=== PATIENT | female | born 1970 ===

== ENCOUNTER → 2024-08-21 | Outpatient (CLI) | payer MEDICAID ==
[~2024-08-21] MED LIST: IOHEXOL 350 MG/ML 100ML IJ ONE
[2024-08-21 09:36] VITALS: BP 171/106; PULSE 72; RESP 16; O2SAT 100
[2024-08-21 11:01] VITALS: BP 172/100; PULSE 68; RESP 16; O2SAT 100
--- NOTE | 2024-08-21 12:50 | DVH ---
Procedure: CT ANGIO RENAL BILATERAL HISTORY: RENAL STENOSIS Comparison Study: None Exam Date:08/21/2024 09:33 AM TECHNIQUE: CTA scanner volumetric data acquisition of abdomen and pelvis was obtained following intravenous admi nistration of intravenous contrast without any reported adverse effects. Axial images were reconstruc hayden and additional sagittal and coronal images were reformatted. Arterial phase imaging were performe d. Postprocessing was also performed on a separate workstation. 3 D images were performed on a dedicated workstation and reviewed for reporting. CONTRAST: Type of contrast: Omni 350 Contrast injected: 100 ml Radiation dose : CT Dose: CTDI volume is 20.72 mGy. Dose-length product is 819.2 mGy*cm FINDINGS: Vascular: Aortic measurements: aortic hiatus 20 mm, suprarenal abdominal aorta 17 mm and infrarenal aorta 13 m m. There is normal caliber of abdominal aorta without evidence of aortic aneurysm. There is a focal i ntimal flap in the infrarenal abdominal aorta. The celiac, superior mesenteric, bilateral renal, il iac and femoral arteries are patent without focal stenosis or aneurysm. Lung Bases: No acute or significant lung base finding. Normal heart size. No pleural or pericardial effusion. Liver: The liver is normal in size. No focal lesions. Normal hepatic vascular enhancement. Gallbladder and biliary Tree: Unremarkable Spleen: Unremarkable Pancreas: The pancreas is normal in appearance without focal lesions or abnormal enhancement. Adrenal Glands: Unremarkable Kidneys: Left renal cyst. No hydronephrosis. Bladder: Unremarkable Bowel: The stomach is grossly normal in appearance. Small bowel and colon are normal in caliber and d istribution. Normal appendix is visualized in the right lower quadrant without findings of appendici tis. Ascites: Absent Lymphadenopathy: No mesenteric, retroperitoneal or periportal lymphadenopathy. Abdominal wall and Mesentery: Unremarkable. Pelvic Organs: Calcified uterine fibroid. Musculoskeletal: No aggressive focal bony lesions, acute fractures or dislocation. IMPRESSION: 1. No abdominal aortic aneurysm. Diffuse calcified atherosclerotic plaque. Focal intimal flap in the infrarenal abdominal aorta. No renal artery stenosis identified. 2. Left renal cyst. Calcified uterine fibroid. HS:Y
== END | disposition home or self-care (01) ==
LOC: Rad HDHVI 09:08
PROVIDERS: ATTEND Internal Medicine Cardiovascular Disease
DX: D25.9 Leiomyoma of uterus, unspecified (principal); N28.1 Cyst of kidney, acquired; I70.1 Atherosclerosis of renal artery; I10 Essential (primary) hypertension
CPT/HCPCS: 74175; G0463; Q9967

== ENCOUNTER → 2024-08-26 | Outpatient (CLI) | payer MEDICAID | END | disposition home or self-care (01) | LOC: Rad HDHVI 08:20 | PROVIDERS: ATTEND Internal Medicine Cardiovascular Disease | DX: I08.1 Rheumatic disorders of both mitral and tricuspid valves (principal); I10 Essential (primary) hypertension | CPT/HCPCS: 93306 ==

== ENCOUNTER → 2024-08-28 | Outpatient (CLI) | payer MEDICAID ==
[~2024-08-28] VITALS: Ht 165.1 cm; Wt 87.5 kg
[~2024-08-28] MED LIST changes: +ADENOSINE 74 MG in GIVE UN-DILUTED 0 ML IV ONE; +ADENOSINE 90 MG/30 ML INJ IV ONE; -IOHEXOL 350 MG/ML 100ML IJ ONE
== END | disposition home or self-care (01) ==
LOC: Rad HDHVI 08:01
PROVIDERS: ATTEND Internal Medicine Cardiovascular Disease
DX: Z13.6 Encounter for screening for cardiovascular disorders (principal); R07.89 Other chest pain; I10 Essential (primary) hypertension; E78.00 Pure hypercholesterolemia, unspecified; R00.1 Bradycardia, unspecified; Z82.49 Family history of ischemic heart disease and other diseases of the circulatory system
CPT/HCPCS: 78452; 93017; A9500; J0153; 93005; 96374; 96375